=== PATIENT | male | born 1960 | race Caucasian/White ===

== ENCOUNTER → 2023-07-17 23:28 | Outpatient (CLI) | payer SELFPAY ==
[2023-07-17 19:54] LABS: Prostate Specific Ag Screen 5.4 ng/ml (0.0-4.0)
== END ==
PROVIDERS: PCP Family Medicine; Visit Provider Family Medicine
DX: Z12.5 Encounter for screening for malignant neoplasm of prostate (principal)
CPT/HCPCS: G0103